=== PATIENT | female | born 1955 | race Caucasian/White ===

== ENCOUNTER 2020-01-19 08:02 | Outpatient (CLI) | payer OTHER, SELFPAY ==
--- NOTE | ~2020-01-19 | US_ITS ---
EXAMINATION: US carotid duplex BI DATE: 01/19/2020 09:24 INDICATION: Carotid stenosis TECHNIQUE: Grayscale, color Doppler, and pulsed Doppler images of the cervical carotid arteries were obtained. The degree of vessel stenosis is placed in one of the following categories: normal, <50%, 5 0-69%, >=70% but less than near-occlusion, near-occlusion, or total occlusion. Note that percent sten osis relative to normal distal artery lumen diameter is indirectly measured from velocity measurement s as described by Andres, et al. Radiology 2003; 229:340-346. Notes: Normal: Peak systolic velocity <125 centimeters/sec and no plaque <50%. Peak systolic velocity <125 ( EDV <40; ICA/CCA PSV ratio <2.0; used these factors only a tandem lesions or low cardiac output or co ntralateral disease) 50-69 %: PSV 125-230 (EDV 40-100; ratio 2-4) >= 70% but less than near occlusion: PSV greater than 230 (EDV > 100; ratio> 4.0) Near Occlusion: PSV that is variable; markedly narrowed lumen Occlusion: Absent flow on color/spectral Doppler and no lumen on hill scale. COMPARISON: None. FINDINGS: RIGHT: The right common carotid artery (CCA) peak systolic velocity (PSV) is 61 cm/s. The right internal car otid artery (ICA) PSV is 512 cm/s. The right ICA end-diastolic velocity (EDV) is 153 cm/s. The right ICA/CCA PSV ratio is 8.4. The external carotid artery (ECA) PSV is 103 cm/s. There is antegrade flow in the right vertebral artery. LEFT: The left CCA PSV is 114 cm/s. The left ICA PSV is 158 cm/s. The left ICA EDV is 45 cm/s. The left ICA /CCA PSV ratio is 1.4. The ECA PSV is 114 cm/s. There is antegrade flow in the left vertebral artery . IMPRESSION: 1. Greater than or equal to 70% stenosis in the right internal carotid artery by sonographic criteria . 2. 50-69% stenosis in the left internal carotid artery by sonographic criteria. Reviewed, dictated and finalized at location B. [employer] IMPRESSION: 1. Greater than or equal to 70% stenosis in the right internal carotid artery b y sonographic criteria. 2. 50-69% stenosis in the left internal carotid artery by sonographic criteria.
[2020-01-19 08:43] LABS: Blood Urea Nitrogen 24 mg/dL (7-17); Calcium 9.2 mg/dL (8.4-10.2); Carbon Dioxide 27 mmol/L (22-30); Chloride 97 mmol/L (98-107); Estimated Glomerular Filt Rate > 60; Glucose 193 mg/dL (65-105); Potassium 4.3 mmol/L (3.4-5.0); Sodium 139 mmol/L (137-145)
[2020-01-19 08:48] LABS: Hemoglobin A1C 6.9 % (<5.7)
[2020-01-19 09:06] LABS: Creatinine Urine 86.8 mg/dL
[2020-01-19 09:13] LABS: Thyroid Stimulating Hormone 0.145 uIU/mL (0.465-4.680)
[2020-01-19 09:34] LABS: MALB Creatinine Ratio < 6.9 mg/g (0-30); Microalbumin Urine Random < 6.0 mg/L (0-16.7)
== END 2020-01-19 08:03 | disposition home or self-care (01) ==
PROVIDERS: PCP Internal Medicine; Visit Provider Internal Medicine
DX: E78.2 Mixed hyperlipidemia (principal); E11.9 Type 2 diabetes mellitus without complications; I10 Essential (primary) hypertension; Z79.899 Other long term (current) drug therapy; I65.23 Occlusion and stenosis of bilateral carotid arteries
CPT/HCPCS: 36415; 80048; 82043; 82542; 83036; 84443; 93880

== ENCOUNTER 2020-03-23 08:01 | Outpatient (CLI) | payer OTHER, SELFPAY ==
--- NOTE | ~2020-03-23 | CT_ITS ---
EXAMINATION: CTA neck DATE: 03/23/2020 09:08 INDICATION: Occlusion and stenosis of the bilateral carotid arteries. TECHNIQUE: Computed tomographic angiography (CTA) of the neck was performed with 100 mL Omnipaque-350 intravenous contrast. Multiplanar reconstructions and maximum intensity projection 3D-reconstruction s were created by the technologist on a separate workstation. The dose-length product was 530 mGy-cm. COMPARISON: 02/06/2019 FINDINGS: Atherosclerotic calcifications along the normal caliber aortic arch. Bovine Aortic arch with common o rigin of the inomminate and left carotid arteries, a normal anatomic variant.. Similarly there is a n ormal anatomic variant common origin of the left vertebral and left subclavian artery. There is uncha nged 60% stenosis of the right carotid bulb relative to normal distal artery lumen diameter (NASCET c riteria). There is a small amount of plaque with 0% stenosis of the left carotid bulb relative to nor mal distal artery lumen diameter. Changes of bilateral intraocular lens replacement. The mastoid air cells, middle ear cavities and visualized portions of the paranasal sinuses and lungs are clear. Cerv ical soft tissues are unremarkable. Severe cervical spondylosis. IMPRESSION: 1. 60% stenosis of the right carotid bulb relative to normal distal artery lumen diameter (NASCET cri teria). 2. 0% stenosis of the left carotid bulb relative to normal distal artery lumen diameter. Reviewed, dictated and finalized at location A. IMPRESSION: 1. 60% stenosis of the right carotid bulb relative to normal distal artery lume n diameter (NASCET criteria). 2. 0% stenosis of the left carotid bulb relative to normal distal artery lumen diameter.
[2020-03-23 08:44] LABS: Estimated Glomerular Filt Rate 56
== END 2020-03-23 08:02 | disposition home or self-care (01) ==
PROVIDERS: Visit Provider Internal Medicine
DX: I65.23 Occlusion and stenosis of bilateral carotid arteries (principal)
CPT/HCPCS: 36415; 70498; Q9967

== ENCOUNTER → 2020-05-04 09:51 | Outpatient (REF) | payer OTHER, SELFPAY | LOC: ANHLAB 09:51 | PROVIDERS: PCP Internal Medicine; Visit Provider Nurse Practitioner | DX: L57.0 Actinic keratosis (principal) | CPT/HCPCS: 88305 ==

== ENCOUNTER 2020-06-07 10:25 | Outpatient (CLI) | payer OTHER, SELFPAY ==
[2020-06-07 11:24] LABS: Basophils Absolute Auto 0.1 K/mm3 (0.0-0.1); Basophils Percent Auto 0.7 % (0.2-1.2); Eosinophils Absolute Auto 0.3 K/mm3 (0-0.3); Eosinophils Percent Auto 3.8 % (0-4.4); Hematocrit 40.9 % (37.0-47.0); Hemoglobin 13.5 g/dL (12.0-15.0); Immature Granulocyte Absolute 0.03 K/mm3 (0.00-0.031); Immature Granulocyte Percent A 0.4 % (0-0.5); Lymphocytes Absolute Auto 2.28 K/mm3 (0.9-3.2); Lymphocytes Percent Auto 29.9 % (18.3-44.2); Mean Corpuscular Hemoglobin 30.1 pg (26-34); Mean Corpuscular Volume 91.1 fl (80-100); Monocytes Absolute Auto 0.4 K/mm3 (0.1-0.6); Monocytes Percent Auto 5.4 % (2.6-8.5); Neutrophils Absolute Auto 4.6 K/mm3 (1.3-6.7); Neutrophils Percent Auto 59.8 % (45.5-73.1); Platelet Count Result 287 k/mm3 (150-375); Red Blood Count 4.49 M/mm3 (4.2-5.4); Red Cell Distribution Width 14.2 % (11.5-14.5); White Blood Count 7.6 K/mm3 (4.5-10.0)
[2020-06-07 11:35] LABS: Blood Urea Nitrogen 19 mg/dL (7-17); Calcium 9.1 mg/dL (8.4-10.2); Carbon Dioxide 28 mmol/L (22-30); Chloride 100 mmol/L (98-107); Cholesterol 127 mg/dL (0-200); Estimated Glomerular Filt Rate > 60; Glucose 159 mg/dL (65-105); HDL Direct 42 mg/dL; Potassium 4.6 mmol/L (3.4-5.0); Sodium 136 mmol/L (137-145); Triglycerides 127 mg/dL (<150)
[2020-06-07 11:45] LABS: LDL Cholesterol Direct 53 mg/dL
[2020-06-07 12:05] LABS: Thyroid Stimulating Hormone 0.075 uIU/mL (0.465-4.680)
== END 2020-06-07 10:26 | disposition home or self-care (01) ==
LOC: ANHLAB 10:27
PROVIDERS: PCP Internal Medicine; Visit Provider Internal Medicine
DX: Z79.899 Other long term (current) drug therapy (principal); I10 Essential (primary) hypertension; E78.2 Mixed hyperlipidemia; E11.9 Type 2 diabetes mellitus without complications
CPT/HCPCS: 36415; 80048; 80061; 83036; 84439; 84443; 85025

== ENCOUNTER → 2020-09-13 12:11 | Outpatient (CLI) | payer OTHER, SELFPAY ==
--- NOTE | ~2020-09-13 | XR_ITS ---
EXAMINATION:XR_[id number], XR thoracic spine 3V, XR lumbar spine 2-3V DATE: 09/13/2020 13:35 INDICATION: Neck pain and back pain TECHNIQUE: 1. AP, lateral and odontoid views of the cervical spine are provided. 2. AP, lateral and lateral swimmer's views of the thoracic spine are provided. 3. AP, lateral and coned-down lumbosacral views of the lumbar spine are provided. COMPARISON: None FINDINGS: Cervical spine: 2 mm retrolisthesis C5 on C6 and 2 mm anterolisthesis C7 on T1. Odontoid is intact. Normal atlantoax ial interval. Vertebral body heights are normal. Moderate disc height loss with severe bilateral unco vertebral osteoarthritis and degenerative endplate osteophytes at C5-C6 and C6-C7. Mild disc height l oss at C4-C5 and C7-T1. The posterior endplate osteophyte at the inferior endplate of C5 results in a t least mild central canal stenosis at this level. There is multilevel moderate left-sided and severe right-sided cervical facet osteoarthritis. Prevertebral soft tissues are normal. Thoracic spine: Alignment is normal. Vertebral body heights are normal. Mild disc height loss at T7-T8 and T10-T11. P aravertebral soft tissues are unremarkable. Visualized portions of the lungs are clear with no pleura l effusion or pneumothorax. Normal heart size. Lumbar spine: 4 mm retrolisthesis L3 on L4 and 2 mm retrolisthesis L4 on L5. Severe disc height loss at L5-S1 with likely secondary mild posterior vertebral body height loss of L5 with sclerotic degenerative endplate changes along the inferior endplate. Remaining vertebral body heights are normal. Moderate disc heig ht loss at L2-L3. Mild disc height loss at L3-L4. Moderate lower lumbar facet osteoarthritis. Visuali zed sacrum and sacral iliac joints are normal. IMPRESSION: 1. . Moderate to severe cervical and lumbar spondylosis with mild spondylosis of the intervening thor acic spine. Reviewed, dictated and finalized at location B. IMPRESSION: 1. . Moderate to severe cervical and lumbar spondylosis with mild spondylosis o f the intervening thoracic spine. IMPRESSION: 1. . Moderate to severe cervical and lumbar spondylosis with mild spondylosis o f the intervening thoracic spine.
== END ==
PROVIDERS: PCP Internal Medicine; Visit Provider Internal Medicine
DX: M47.892 Other spondylosis, cervical region (principal); M47.896 Other spondylosis, lumbar region
CPT/HCPCS: 72040; 72072; 72100

== ENCOUNTER 2020-11-03 09:56 | Outpatient (CLI) | payer SELFPAY ==
[2020-11-03 10:14] LABS: Basophils Absolute Auto 0.1 K/mm3 (0.0-0.1); Basophils Percent Auto 1.2 % (0.2-1.2); Eosinophils Absolute Auto 0.3 K/mm3 (0-0.3); Eosinophils Percent Auto 5.2 % (0-4.4); Hematocrit 41.8 % (37.0-47.0); Immature Granulocyte Absolute 0.01 K/mm3 (0.00-0.031); Immature Granulocyte Percent A 0.2 % (0-0.5); Lymphocytes Absolute Auto 1.99 K/mm3 (0.9-3.2); Lymphocytes Percent Auto 34.2 % (18.3-44.2); Mean Corpuscular HGB Conc 33.5 g/dl (32-36); Mean Corpuscular Hemoglobin 30.8 pg (26-34); Mean Corpuscular Volume 91.9 fl (80-100); Mean Platelet Volume 9.9 fl (7.4-10.4); Monocytes Absolute Auto 0.5 K/mm3 (0.1-0.6); Monocytes Percent Auto 8.2 % (2.6-8.5); Platelet Count Result 313 k/mm3 (150-375); Red Blood Count 4.55 M/mm3 (4.2-5.4); Red Cell Distribution Width 13.6 % (11.5-14.5); White Blood Count 5.8 K/mm3 (4.5-10.0)
[2020-11-03 10:25] LABS: Anion Gap 8 mmol/L (8-16); Blood Urea Nitrogen 20 mg/dL (7-17); Calcium 9.5 mg/dL (8.4-10.2); Carbon Dioxide 32 mmol/L (22-30); Chloride 97 mmol/L (98-107); Cholesterol 129 mg/dL (0-200); Estimated Glomerular Filt Rate > 60; Glucose 172 mg/dL (65-105); HDL Direct 40 mg/dL; Potassium 4.2 mmol/L (3.4-5.0); Sodium 137 mmol/L (137-145); Triglycerides 144 mg/dL (<150)
[2020-11-03 10:35] LABS: LDL Cholesterol Direct 49 mg/dL
[2020-11-03 11:10] LABS: Free T4 Free Thyroxine 0.84 ng/mL (0.78-2.19)
[2020-11-03 15:15] LABS: Hemoglobin A1C 7.4 % (<5.7)
[2020-11-06 11:15] LABS: Vitamin D 1,25 (OH)2 Total 17 pg/mL (18-72); Vitamin D2 1,25 (OH)2 <8 pg/mL; Vitamin D3 1,25 (OH)2 17 pg/mL
== END 2020-11-03 09:57 | disposition home or self-care (01) ==
LOC: ANHLAB 09:59
PROVIDERS: PCP Internal Medicine; Visit Provider Internal Medicine
DX: R79.9 Abnormal finding of blood chemistry, unspecified (principal); R94.6 Abnormal results of thyroid function studies; E78.2 Mixed hyperlipidemia; E55.9 Vitamin D deficiency, unspecified
CPT/HCPCS: 36415; 80048; 80061; 82652; 83036; 83090; 84439; 84443; 84481; 85025

== ENCOUNTER 2021-01-31 10:32 | Outpatient (CLI) | payer MEDICARE, SELFPAY ==
--- NOTE | ~2021-01-31 | US_ITS ---
EXAMINATION: US carotid duplex BI DATE: 01/31/2021 11:06 INDICATION: Occlusion and stenosis of carotid artery. TECHNIQUE: Grayscale, color Doppler, and pulsed Doppler images of the cervical carotid arteries were obtained. The degree of vessel stenosis is placed in one of the following categories: normal, <50%, 5 0-69%, >=70% but less than near-occlusion, near-occlusion, or total occlusion. Note that percent sten osis relative to normal distal artery lumen diameter is indirectly measured from velocity measurement s as described by Andres, et al. Radiology 2003; [id number]:340-346. COMPARISON: Ultrasound 01/19/2020 FINDINGS: RIGHT: The right common carotid artery (CCA) peak systolic velocity (PSV) is 81 cm/s. The right internal car otid artery (ICA) PSV is 405 cm/s. The right ICA end-diastolic velocity (EDV) is 124 cm/s. The right ICA/CCA PSV ratio is 5.0. Grayscale and color Doppler images yield an estimate of <50% diameter reduc tion from plaque in the ICA. There is antegrade flow in the right vertebral artery. LEFT: The left CCA PSV is 73 cm/s. The left ICA PSV is 110 cm/s. The left ICA EDV is 35 cm/s. The left ICA/ CCA PSV ratio is 1.5. Grayscale and color Doppler images yield an estimate of <50% diameter reduction from plaque in the ICA. There is antegrade flow in the left vertebral artery. IMPRESSION: 1. <50% stenosis in the right internal carotid artery. 2. <50% stenosis in the left internal carotid artery. Reviewed, dictated and finalized at location A.
== END 2021-01-31 10:33 | disposition home or self-care (01) ==
PROVIDERS: PCP Internal Medicine; Visit Provider Internal Medicine
DX: I65.23 Occlusion and stenosis of bilateral carotid arteries (principal)
CPT/HCPCS: 93880

== ENCOUNTER → 2021-02-08 10:17 | Outpatient (CLI) | payer MEDICARE, SELFPAY ==
--- NOTE | ~2021-02-08 | MM_ITS ---
EXAMINATION: MM screening [facility] BI w filomena HISTORY: Screening mammogram TECHNIQUE: Craniocaudal and mediolateral oblique 3-D tomosynthesis images were obtained and synthetic 2-D images were generated. CAD analysis was submitted and interpreted. COMPARISON: 10/29/2019, 04/24/2017, 04/29/2015, 11/10/2009 BREAST PARENCHYMAL COMPOSITION: The breasts are heterogeneously dense, which may obscure small masses . FINDINGS: There is no evidence of suspicious mass, calcification, or architectural distortion to sugg est malignancy in either breast. There has been no suspicious interval change. IMPRESSION: 1. No mammographic evidence of malignancy. 2. Recommend routine screening mammography in one year. BI-RADS Category 1: Negative Reviewed, dictated and finalized at location A.
== END ==
PROVIDERS: PCP Internal Medicine; Visit Provider Internal Medicine
DX: Z12.31 Encounter for screening mammogram for malignant neoplasm of breast (principal)
CPT/HCPCS: 77063; 77067

== ENCOUNTER 2021-03-21 08:49 | Outpatient (CLI) | payer MEDICARE, SELFPAY ==
[2021-03-21 09:47] LABS: Anion Gap 9 mmol/L (8-16); Blood Urea Nitrogen 21 mg/dL (7-17); Calcium 9.6 mg/dL (8.4-10.2); Carbon Dioxide 32 mmol/L (22-30); Chloride 99 mmol/L (98-107); Cholesterol 148 mg/dL (0-200); Estimated Glomerular Filt Rate 56; Glucose 141 mg/dL (65-105); HDL Direct 46 mg/dL; Potassium 3.8 mmol/L (3.4-5.0); Sodium 140 mmol/L (137-145); Triglycerides 118 mg/dL (<150)
[2021-03-21 09:57] LABS: Hemoglobin A1C 6.9 % (<5.7)
[2021-03-21 09:58] LABS: LDL Cholesterol Direct 67 mg/dL
[2021-03-21 10:18] LABS: Thyroid Stimulating Hormone 0.866 uIU/mL (0.465-4.680)
[2021-03-21 10:20] LABS: Creatinine Urine 15.6 mg/dL
[2021-03-21 10:29] LABS: Free T4 Free Thyroxine 0.97 ng/mL (0.78-2.19)
[2021-03-21 10:45] LABS: Microalbumin Urine Random < 6.0 mg/L (0-16.7)
[2021-03-23 18:28] LABS: Apolipoprotein B 71 mg/dL (<90)
[2021-03-25 15:03] LABS: Vitamin D 1,25 (OH)2 Total 32 pg/mL (18-72); Vitamin D2 1,25 (OH)2 <8 pg/mL; Vitamin D3 1,25 (OH)2 32 pg/mL
== END 2021-03-21 08:50 | disposition home or self-care (01) ==
PROVIDERS: PCP Internal Medicine; Visit Provider Internal Medicine
DX: E78.2 Mixed hyperlipidemia (principal); E55.9 Vitamin D deficiency, unspecified; I10 Essential (primary) hypertension; Z79.899 Other long term (current) drug therapy; E11.9 Type 2 diabetes mellitus without complications
CPT/HCPCS: 36415; 80048; 80061; 82043; 82172; 82652; 83036; 84439; 84443